=== PATIENT | female | born 1995 | race Caucasian/White ===

== ENCOUNTER → 2017-07-27 | Outpatient (CLI) | payer BC | LOC: OD 08:08 | PROVIDERS: ATTEND Midwife | DX: N91.2 Amenorrhea, unspecified (principal) | CPT/HCPCS: 36415; 84702 ==

== ENCOUNTER 2017-08-16 06:57 | Day surgery (SDC) | payer BC ==
[2017-08-16] MEDS ORDERED: DOXYCYCLINE HYCLATE 100 MG in DEXTROSE 5%-WATER 250 ML IV PRN (07:24)
[2017-08-16 07:56] LABS: HEMATOCRIT 42.5 % (36.0-47.0); HEMOGLOBIN 14.5 g/dL (12.0-15.5); MEAN CORPUSCULAR HEMOGLOBIN 30.2 pg (27.0-33.4); MEAN CORPUSCULAR VOLUME 89 fl (80-97); PLATELET COUNT 230 10^3/uL (150-450); RED CELL DISTRIBUTION WIDTH 12.8 % (11.5-14.0); WHITE BLOOD COUNT 6.3 10^3/uL (4.0-10.5)
[2017-08-16] MEDS ORDERED: MIDAZOLAM 2 MG/2 ML INJ ONE ×2 (07:59→08:40)
[2017-08-16 08:14] LABS: APPEARANCE,URINE CLOUDY; BILIRUBIN,URINE NEGATIVE (NEGATIVE); COLOR,URINE YELLOW; GLUCOSE, URINE NEGATIVE (NEGATIVE); KETONES,URINE NEGATIVE (NEGATIVE); LEUKOCYTE ESTERASE,URINE SMALL (NEGATIVE); NITRITE,URINE NEGATIVE (NEGATIVE); PROTEIN,URINE NEGATIVE (NEGATIVE); UROBILINOGEN,URINE NEGATIVE mg/dL (<2.0)
[2017-08-16] MEDS ORDERED: PROPOFOL INJ 200 MG/20 ML VIAL IV ONE (08:40)
[2017-08-16] MEDS ORDERED: FENTANYL CITRATE INJ/PF 100 MCG/2 ML AMPUL ONE (08:40)
[2017-08-16] MEDS ORDERED: MEPERIDINE HCL/PF INJ 25 MG/1 ML DISP.SYRIN IV PRN (08:57)
[2017-08-16] MEDS ORDERED: DIPHENHYDRAMINE HCL 50 MG/ML VIAL IV PRN (08:57)
[2017-08-16] MEDS ORDERED: FENTANYL CITRATE INJ/PF 100 MCG/2 ML AMPUL IV PRN ×3 (08:57)
[2017-08-16] MEDS ORDERED: PROMETHAZINE HCL INJ 25 MG/1 ML VIAL IV PRN (08:57)
--- NOTE | 2017-08-16 09:35 | Operative Report ---
Operative Report DATE OF SURGERY: 08/16/17 PREOPERATIVE DIAGNOSIS: Patient requests suction D&C for incomplete AB POSTOPERATIVE DIAGNOSIS: Same OPERATION: Suction D&C SURGEON: YELITZA LYON ANESTHESIA: LMAC TISSUE REMOVED OR ALTERED: Uterine contents COMPLICATIONS: None ESTIMATED BLOOD LOSS: 20 cc INTRAOPERATIVE FINDINGS: Sound 8 cm before and after the case. Very small return of uterine contents. Intraoperative ultrasound shows no retained contents PROCEDURE: Patient was taken the OR and placed in supine position. General anesthesia was induced. She is placed in dorsolithotomy position using Van stirrups. Her perineum vagina were prepared and draped in sterile fashion. Her bladder was drained with red rubber catheter. A weighted speculum was placed in the anterior lip cervix was grasped with a tenaculum. Sound was to 8 cm before and after case. Cervix was gently dilated and allowing a size 8 suction curette to be placed. The uterine contents were evacuated. There is very small return of tissue. A gentle sharp curettage revealed no retained products. Because of small return of tissue I had the ultrasound brought into the case and retained products were not seen on ultrasound. At this point all instruments removed from the vagina. She is placed back in supine position taken recovery room in stable condition.
[2017-08-16] MEDS ORDERED: OXYCODONE-ACETAMINOPHEN 5-325 MG TABLET PO PRN ×2 (09:54→09:55)
[2017-08-16] MEDS ORDERED: IBUPROFEN 800 MG TABLET PO PRN (09:54)
[2017-08-16] MEDS ORDERED: KETOROLAC TROMETHAMINE INJ/PF 30 MG/1 ML SDV IV PRN (09:54)
[2017-08-16] MEDS ORDERED: KETOROLAC TROMETHAMINE INJ/PF 30 MG/1 ML SDV ONE (09:55)
[2017-08-16] MEDS ORDERED: RINGERS SOLUTION,LACTATED 1,000 ML IV PRN (09:55)
[2017-08-16] MEDS ORDERED: OXYCODONE-ACETAMINOPHEN 5-325 MG TABLET ONE (10:08)
[2017-08-16 11:05] VITALS: BP 122/70
== END 2017-08-16 11:06 | disposition home or self-care (01) ==
LOC: OROUT 06:57
PROVIDERS: ATTEND Obstetrics & Gynecology
DX: O02.1 Missed abortion (principal); G43.909 Migraine, unspecified, not intractable, without status migrainosus; Z87.891 Personal history of nicotine dependence; Z79.899 Other long term (current) drug therapy
CPT/HCPCS: 36415; 85027; 81001; 88304 ×2; 59820; J2250; J3490; J3010; J1885; J7060; J2704; 1965